=== PATIENT | male | born 1950 | race Caucasian/White ===

== ENCOUNTER → 2017-04-08 | Outpatient (CLI) | payer MEDICARE, OTHER ==
--- NOTE | ~2017-04-08 | ECHO ---
Transthoracic Echocardiography Report (TTE) Demographics Patient Name DOMINGA BETHEA Date of Study 04/08/2017 Patient Number [id number] Visit Number [id number] Date of 1950 Room Number Gender Male Number Age 67 year(s) Referring Victor Manuel Garner Datawarehouse Developer Shalonda Sinha, Physician A RT,RVT,RDCS Physician Interpreting Victor Manuel Garner Steam Fitter Helper Physician A Supervising Ordering Victor Manuel Garner MD/MLP Physician A Nurse Stress Associate Professor Of Violin Conclusions Contractility Score Summary Normal Left Ventricular contractility was noted. Summary The estimated left ventricular ejection fraction is 60-65%. Mild concentric left ventricular hypertrophy. The right atrium is mildly dilated. Mildly dilated right ventricle. Procedure Type of Study TTE procedure:2D Echocardiogram, M-Mode, Doppler , Color Doppler. Procedure Date Date: 04/08/2017 Start: 03:06 PM Study Location: Echo Lab Technical Quality: Adequate visualization Indications:Dyspnea/SOB. Appropriate Use Criteria: 9 Patient Status: Routine HR: 71 bpm BP: 135/84 mmHg M-Mode/2D Measurements LV Diastolic Dimension: 4.43 cm LV Systolic Dimension: 2.1 cm LV Septum Diastolic: 1.12 cm LV Septum Systolic: 1.43 cm LV PW Diastolic: 1.25 cm LV PW Systolic: 1.17 cm Cardiac Output: 4.52 l/min AO Root Dimension: 3.4 cm RV Diastolic Dimension: 3.95 cm LA Dimension: 3.6 cm EF Estimated: 65 % LA volume: 39 ml RV Base: 4.1 cm LVOT: 2.1 cm RV Mid: 3.8 cm LVOT VTI: 18.4 cm RV Length: 6.6 cm LV Stroke volume: 63.7 ml TDI-S': 15.2 cm/s Doppler Measurements AV Peak Velocity: 1.12 m/s MV Peak E-Wave: 0.93 m/s AV Peak Gradient: 5.02 mmHg MV Peak A-Wave: 0.89 m/s AV Mean Gradient: 3 mmHg MV E/A Ratio: 1.04 LVOT Peak Velocity: 0.87 m/s MV P1/2t: 54 msec TR Gradient:6.05 mmHg PV Peak Velocity: 0.65 m/s Estimated RAP:10 mmHg PV Peak Gradient: 1.71 mmHg Estimated RVSP: 16 mmHg Estimated PASP: 16.05 mmHg E' Septal Velocity: 0.05 m/s A' Septal Velocity: 0.11 m/s MV E/E' Ratio: 18.4 Findings Left Ventricle Mild concentric left ventricular hypertrophy. Right Ventricle Mildly dilated right ventricle. Normal right ventricular systolic performance. Left Atrium Normal left atrial size. Right Atrium The right atrium is mildly dilated. Mitral Valve Normal mitral valve structure and function. Aortic Valve Mildly sclerotic trileaflet aortic valve. Tricuspid Valve Normal tricuspid valve structure and function. Pulmonic Valve Normal pulmonic valve structure and function. Pericardial Effusion No evidence of pericardial effusion. Epicardial fat pad noted. Miscellaneous Visualized portions of the aortic root and ascending aorta appear normal in size. Pleural Effusion No evidence of pleural effusion. Contractility Score LV regional wall motion:(0-Non visualized 1-Normal 2-Hypokinesis 3-Akinesis 4-Dyskinesis 5-Aneurysm) Signature dtt: Christopher Rush dtd: 04/08/17 1506
== END | disposition disaster alternative care site (69) ==
LOC: GCAR 15:00
DX: R06.02 Shortness of breath (principal); I72.8 Aneurysm of other specified arteries; I51.7 Cardiomegaly; R53.83 Other fatigue

== ENCOUNTER → 2017-04-08 | Outpatient (CLI) | payer MEDICARE, OTHER ==
[2017-04-08 17:26] LABS: CPK 252 IU/L (35-332)
== END | disposition disaster alternative care site (69) ==
LOC: LNHI 16:55
PROVIDERS: Internal Medicine Cardiovascular Disease
DX: I25.10 Atherosclerotic heart disease of native coronary artery without angina pectoris (principal); E78.2 Mixed hyperlipidemia; I10 Essential (primary) hypertension; E11.65 Type 2 diabetes mellitus with hyperglycemia; E66.09 Other obesity due to excess calories